=== PATIENT | female | born 1990 | race Caucasian/White ===

== ENCOUNTER 2016-12-25 12:59 | Emergency (ER) | payer OTHER ==
--- NOTE | ~2016-12-25 | CR63 ---
[facility] A Service of [facility] & [facility] RADIOLOGY TEXT RESULTS PATIENT: SHAVONNE CARRIZALES LOCATION: CFTX : 88 UNIT #: [id number] AGE: [address]: Sekou Palmer SEX: F ORDER DR: [id number] [facility] [address]. [place], [place] [address] [id number] MR#: [id number] Acc #: [id number] NAME: SHAVONNE CARRIZALES : 1990 SEX: F STUDY DATE/TIME: 12/25/2016 13:36 UNIT: [id number] ROOM: STUDY DESCRIPTION: CR Chest 2 View Attending Physician: Sekou Palmer Ordering Physician: Er [facility]icians Primary Care Physician: Primary Care Physician No MEDICAL IMAGING REPORT This report is preliminary unless electronic signature is present EXAM Chest x-ray 12/25 INDICATIONS Shortness of air. Asthma exacerbation. Symptoms started today. FINDINGS PA and lateral examination of the chest upright shows a good expansion of the parenchyma with a normal distribution of the pulmonary vascularity. There is no indication of congestion, effusion, infiltrate, tumor, or nodular density. The pleural reflections and diaphragmatic contours are normal. The cardiac silhouette and mediastinal anatomy is within normal limits. IMPRESSION Normal chest. Dictated by... Judah Alves Jr., M.D. THIS IS AN ELECTRONICALLY VERIFIED REPORT Judah Alves Jr., M.D. at 12/25/2016 3:52 PM [place] TD: 12/25/2016 14:31 JOB #: [id number] MEDICAL IMAGING REPORT COPY
== END 2016-12-25 14:45 | disposition home or self-care (01) ==
LOC: CFTX 12:59
DX: J45.901 Unspecified asthma with (acute) exacerbation (principal); Z98.890 Other specified postprocedural states; F17.210 Nicotine dependence, cigarettes, uncomplicated; Z88.0 Allergy status to penicillin
CPT/HCPCS: 71020; 94640; 99284